=== PATIENT | male | born 1975 | race Caucasian/White ===

== ENCOUNTER 2016-12-31 18:43 | Inpatient (IN) | payer OTHER ==
[~2016-12-31] VITALS: Ht 190.5 cm; Wt 129.0 kg
--- NOTE | ~2016-12-31 | HP ---
PATIENT'S NAME: MAYITO CAMARGO [facility] AGE: 41 Y [address] ROOM: [place] [address] LOCATION: [facility] [place] ADMIT DATE: 12/31/2016 History & Physical DISCHARGE DATE: FAMILY PHYSICIAN: PHYSICIAN, NO ATTENDING PHYSICIAN: KAILYN BAILON V DATE OF SERVICE: CHIEF COMPLAINT: Fever, generalized fatigue, and cough. HISTORY OF PRESENT ILLNESS: The patient is a previously healthy 41-year-old male whose troubles began yesterday afternoon. At that point, he developed cough and dyspnea as well as shortness of breath. He also had some fevers, which were not quantified. His symptoms continued through the day and today when he was at work he became progressively more ill, diaphoretic, and felt overall quite unwell. He presented to the ER. He does admit to sharp pleuritic type of chest pain at the base of bilateral diaphragms associated with deep inspiration. He denies any nausea, vomiting, diarrhea, rashes, or any recent sick contacts. He did recently travel to [place], [place] by car, where he had a job interview and subsequently stopped by at an outdoor music festival in [place], [place]. However, he denies any sick contacts at these instances. He denies any swelling in his legs or rashes, but he does admit to generalized myalgias and arthralgias. A detailed workup in the emergency room was negative for any significant lab or chest x-ray abnormalities. REVIEW OF SYSTEMS: A detailed review of systems was conducted and is negative aside from pertinent positives mentioned above. PAST MEDICAL HISTORY: The patient denies. PAST SURGICAL HISTORY: Elbow surgery, several years ago. CURRENT MEDICATIONS: None. 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 ROOM: [place] [address] LOCATION: [facility] [place] ADMIT DATE: 12/31/2016 History & Physical DISCHARGE DATE: FAMILY PHYSICIAN: PHYSICIAN, NO ATTENDING PHYSICIAN: KAILYN BAILON V have some toxic exposures specifically to ink, but he denies having been overexposed to these substances compared to his baseline. He uses a vaporizer as a source of nicotine and admits to social alcohol use. He denies any recreational or illicit drug use. FAMILY HISTORY: Reviewed and is negative. PHYSICAL EXAMINATION: VITAL SIGNS: Temperature 101.2, blood pressure 160/100, heart rate is 110s, saturating 95% on room air, and respirations are in low 20s. GENERAL: Appears as a well-developed, well-nourished, middle-aged male, in quite a bit of distress and appears diaphoretic and uncomfortable. NEUROLOGIC: A detailed neurological exam is nonfocal. EYES: Exam shows pupils are equal and reactive to light. LYMPHATICS: Exam shows no cervical lymphadenopathy. ENDOCRINE: Exam shows no thyromegaly. LUNGS: Exam reveals dry crackles at the bases with poor inspiratory effort. HEART: Reveals regular tachycardia with no appreciable murmurs, gallops, or rubs. EXTREMITIES: There is no lower extremity edema or jugular venous distention. GI: Exam reveals abdomen is soft, nontender, nondistended. : Exam reveals no costovertebral angle tenderness. VASCULAR: Exam reveals 2+ pedal pulses. Negative Homans sign. SKIN: Warm and dry. No rashes. PSYCHIATRIC: Reveals appropriate mood, cognition, and affect. MUSCULOSKELETAL: Reveals no abnormalities. LABORATORY DATA: Studies performed in the ER significant for a lactate of 1.4, glucose of 67. Normal CBC with an unremarkable differential and negative procalcitonin as well as negative influenza swab. ASSESSMENT AND PLAN: This is a 41-year-old male with a fever and respiratory distress who will be admitted for observation. In addition to the workup performed in the ER, we will order the following tests: 1. CAT scan of his chest to rule out a PE given a recent prolonged trip. We will also check his EKG as well as cardiac enzymes. 2. We will check sed rate and CRP as well as a urinalysis. Since we are already doing a CAT scan, we will scan his abdomen and pelvis. We will provide him with a symptomatic support during his observation with antiemetics, antipyretics, fluids, and Tylenol. The remainder of the plan will depend on his clinical course. Time dedicated to this patient encounter is 35 minutes. PATIENT'S NAME: MAYITO CAMARGO [facility] AGE: 41 Y [address] ROOM: [address] [address] LOCATION: [facility] [place] ADMIT DATE: 12/31/2016 History & Physical DISCHARGE DATE: FAMILY PHYSICIAN: KAREN GRIMALDO ATTENDING PHYSICIAN: KAILYN BAILON V MD BI GUZMAN/modl /[id number] D: [id number] T: [id number] HISTORY & PHYSICAL
--- NOTE | ~2016-12-31 | DS ---
PATIENT'S NAME: MAYITO [facility] AGE: 41 Y [address] ROOM: [address] [address] [place] [facility] [place]MIT DATE: 12/31/2016 Discharge Summary DISCHARGE DATE: 01/03/2017 FAMILY PHYSICIAN: PHYSICIAN, NO ATTENDING PHYSICIAN: Deric Zaman V FINAL DIAGNOSES: 1. Fever, secondary to suspected pneumonia. 2. Left infrahilar opacity, pneumonia versus other. 3. Elevated blood pressure. 4. Anxiety. 5. Tobacco dependence. CONSULTANTS ON THE CASE: None. PROCEDURES: None. HOSPITAL COURSE: Please see details of admission and H and P by Dr. Zaman. Briefly, the patient was admitted with shortness of breath, body aches, fever, and cough. He was found to have a patchy left lower lobe, consistent with early pneumonia. CT scan also showed bilateral axillary lymphadenopathy of uncertain significance. The patient was admitted and was started on oral Levaquin. Respiratory severity scoring was utilized throughout his stay. He did have q.i.d. nebulizer treatments. The patient continued to have some pain and fevers on hospital day #2. Lungs were diminished and a little coarse, but no obvious wheezes at that time. The patient did have some significant anxiety and did get some p.r.n. Ativan, thought secondary to tobacco withdrawal. On hospital day #2, the patient was feeling a little bit better. However, he did have a small emesis after a coughing attack, and the patient was quite wheezy after. We started him on some prednisone and continued to observe him through the night. On the 20th, the patient was feeling significantly better. There was no wheezing noted in his lungs. His chest pain did feel better, and it was felt that he could safely be discharged to home. DIAGNOSTICS: Two views of the chest shows no acute process. CT scan with PE protocol shows: 1. No evidence of pulmonary embolic disease. 2. Enlargement of the central pulmonary arteries raising the question of pulmonary arterial hypertension. 3. Bilateral axillary adenopathy of uncertain etiology. 4. Focal mass-like consolidation in the left infrahilar region measuring 3.3 cm. PATIENT'S NAME: MAYITO [facility] AGE: 41 Y [address] ROOM: [id number] [place], [place] [address] LOCATION: [facility] [place] ADMIT DATE: 12/31/2016 Discharge Summary DISCHARGE DATE: 01/03/2017 FAMILY PHYSICIAN: , KAREN ATTENDING PHYSICIAN: Deric Zaman V CT scan of the abdomen and pelvis for fever showed: 1. Splenomegaly. 2. Focal consolidation of the left infrahilar region, representing focal pneumonia, but cannot rule out possible neoplasm. 3. Scattered air-fluid levels within the small bowel present. No evidence of obstruction. LABORATORY STUDIES: Lactate on admission was 1.4, on the , it was down to 1.1. On admission, sodium 137, potassium 4.3, chloride 104, bicarb 24, glucose 67, BUN 6, creatinine 1.0, mag was 2.1. Chemistries remained stable throughout his stay. CPK was 169, CK-MB was 1.6, troponin was less than 0.04. CRP was 0.95. TSH was 0.395. On admission, white blood cell count was 9.4, hemoglobin 15.9, hematocrit 45.4, platelets were 197. Hemogram remained stable throughout his stay. Influenza A and B were negative. Sed rate was 13. INR of 0.97. Procalcitonin was less than 0.05. Blood culture showed no growth to date. DISCHARGE INSTRUCTIONS: The patient's diet is as tolerated. Activity is as tolerated. To follow up with Dr. Luque at [facility] on 01/[address] Luque is to follow up with x-ray and/or CT scan to ensure resolution of the left infrahilar opacity. DISCHARGE MEDICATIONS: 1. Levaquin 750 mg daily for 6 days. 2. Florastor 250 mg twice daily. 3. Tylenol 650 mg every 6 hours as needed. 4. Motrin 400 mg every 8 hours as needed. 5. Albuterol 2 puffs every 4 hours as needed for shortness of breath. 6. Prednisone 30 mg p.o. daily for 2 days, then 20 mg daily for 2 days, and 10 mg daily for 2 days, and discontinue. The patient was able to verbalize understanding of these discharge instructions and was discharged in stable condition. We do appreciate participating in this patient's care. Thank you very much for the ability to serve them while hospitalized at [facility]. Time spent coordinating details of discharge was greater than 30 minutes of which was spent in patient education and completion of medication reconciliation. PATIENT'S NAME: MAYITO [facility] AGE: 41 Y [address] ROOM: [address] [address] LOCATION: [facility] [place] ADMIT DATE: 12/31/2016 Discharge Summary DISCHARGE DATE: 01/03/2017 FAMILY PHYSICIAN: KAREN GRIMALDO ATTENDING PHYSICIAN: Deric Zmaan V MAIRA MCDOWELL FOR PETTY DUNLAP MD JATINDER/modl /[id number] d: 01/04/17309 t: 01/23/17 1619, DISCHARGE SUMMARY
--- NOTE | ~2016-12-31 | ER ---
PATIENT'S NAME: MAYITO CAMARGO [facility] AGE: 41 Y [address] ROOM: [place] [id number] LOCATION: [facility] [place] ADMIT DATE: 12/31/2016 ER/Outpatient Report DISCHARGE DATE: FAMILY PHYSICIAN: PHYSICIAN, NO ATTENDING PHYSICIAN: KAILYN BAILON V TIME OF ARRIVAL: 1843 hours. TIME SEEN: 1900 hours. CHIEF COMPLAINT: This is a 41-year-old male, he is previously quite healthy, he is in with complaint of cough, shortness of breath, difficulty breathing, fever, and generalized muscle aches. HISTORY OF PRESENT ILLNESS: The patient reports he developed a cough last night. He is producing moderate amounts of sputum. He had progressively worse difficulty breathing and cough throughout the night and throughout the day today. He developed fever and chills today. PAST MEDICAL HISTORY: Significant for ADHD. CURRENT MEDICATIONS: Include Dexedrine. REVIEW OF SYSTEMS: Otherwise, negative. SOCIAL HISTORY: He is a 1-pack per day smoker. PHYSICAL EXAMINATION: GENERAL: Alert, cooperative male, in moderate respiratory distress. VITAL SIGNS: Stable. He was tachycardiac, tachypneic, and febrile with temperature 101.2. HEAD, EARS, EYES, NOSE, AND THROAT: Normal. NECK: Supple. Neck veins are flat. HEART: Had a regular rate and rhythm. He is tachycardic. There is no murmur. LUNGS: He had rhonchi and wheezing audible bilaterally. ABDOMEN: Soft and nontender. PATIENT'S NAME: MAYITO CAMARGO [facility] AGE: 41 Y [address] ROOM: [place] [id number] LOCATION: [facility] [place] ADMIT DATE: 12/31/2016 ER/Outpatient Report DISCHARGE DATE: FAMILY PHYSICIAN: PHYSICIAN, NO ATTENDING PHYSICIAN: KAILYN BAILON V EXTREMITIES: Normal. NEUROLOGIC: Exam is normal. LABORATORY DATA: CBC and metabolic profile were unremarkable. Lactate was normal. Chest x-ray was negative by my interpretation. EKG revealed sinus tachycardia with no acute ST or T-wave changes. Procalcitonin was negative. CT scan revealed no evidence of PE, he did have a patchy consolidation of left lower lobe, consistent with early pneumonia and bilateral axillary lymphadenopathy of uncertain significance. EMERGENCY DEPARTMENT COURSE: Dr. Bailon was called who arrived promptly evaluated the patient and made arrangements to admit the patient. He had an albuterol Atrovent breathing treatment while in the emergency department with no improvement. ASSESSMENT: Bronchitis with wheezing. PLAN: Admit for IV antibiotics. ANA ROGERS MD JPREET/modl /[id number] d: 01/01/17 0350 t: 01/01/17 0455, OUTPATIENT REPORT
[2016-12-31 19:43] LABS: BASOPHIL % 0.4 %; EOSINOPHIL # 0.1 K/uL (0.0-0.5); EOSINOPHIL % 1.3 %; HEMATOCRIT 45.4 % (37.0-53.0); HEMOGLOBIN 15.9 g/dL (12.0-17.0); IMMATURE GRANULOCYTE % 0.2 %; LYMPHOCYTE # 2.1 K/uL (0.8-4.0); LYMPHOCYTE % 22.2 %; MCV 91.3 fl (83.0-98.0); MONOCYTE # 0.9 K/uL (0.0-1.0); MONOCYTE % 9.4 %; MPV 9.7 fl (9.4-12.4); NEUTROPHIL # (ANC) 6.3 K/uL (1.4-9.0); NEUTROPHIL % 66.5 %; NRBC % 0 /100WBC (0-0.00); PLATELET COUNT 197 K/uL (150-450); RBC 4.97 M/uL (4.00-6.00); RDW-CV 13.6 % (11.9-14.6); WBC 9.4 K/uL (4.0-11.0)
[2016-12-31 20:08] LABS: ALBUMIN 3.5 gm/dL (3.5-5.0); ALK PHOS 54 IU/L (33-138); ALT 27 IU/L (12-78); ANION GAP 11.3 (10.0-19.0); AST 20 IU/L (10-40); BLOOD UREA NITROGEN 6 mg/dL (6-24); CALCIUM 8.8 mg/dL (8.5-10.5); CHLORIDE 104 mMol/L (96-110); CO2 24 mMol/L (22-32); ESTIMATED GFR (MDRD EQUATION) > 60; POTASSIUM 4.3 mMol/L (3.7-5.1); SODIUM 135 mMol/L (135-145); TOTAL BILIRUBIN 0.8 mg/dL (0.0-1.5); TOTAL PROTEIN 7.2 g/dL (6.0-8.4)
[2016-12-31 22:22] LABS: INR - (THERAPEUTIC) 0.97 (0.92-1.07); PROTIME 10.2 SECONDS (9.8-11.4)
[2016-12-31 22:28] LABS: CPK 169 IU/L (35-332); MAGNESIUM 2.1 mg/dL (1.8-2.6)
--- NOTE | 2017-01-01 03:05 | NUR ---
Patient is a 41 year old male admitted with fever of unknown origin, has a productive cough Pro-chemo was neg as well as WBC neg. History of ADHA but has not taken any meds for this for along time. Otherwise not much for medical history. Yesterday started feeling bad, SOB, with expiratory wheezes and is being admitted for pneumonia.
--- NOTE | 2017-01-01 04:31 | NUR ---
Significant Event: 41 year old admitted for fever of unknown origin. Tylenol and Motrin given, but fevers have persisted until 0400 when they finally returned to normal(see MEWS). Heart has been tachycardic and patient also has high respiratory rate. Dr is aware and has been updated. Patient is alert and orientated. Has a productive cough and wheezes through out lung morelos. Labs have all been withing normal ranges. Has not needed any 02 Follow up: Continue to monitor.
--- NOTE | 2017-01-01 15:21 | NUR ---
HAS SLEPT MOST OF THE SHIFT. TEMPS THIS SHIFT HAVE BEEN 98.1 AND 97.8. UP TO THE BATHROOM AND IN THE ROOM AD TERESA. 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 HAS A PRODUCTIVE COUGH. C/O SOB AND SOME PAIN IN HIS CHEST WITH DEEP BREATHS. LUNGS ARE CLEAR TODAY. EATING AND VOIDING WITHOUT DIFFICULTY.
--- NOTE | 2017-01-02 05:21 | NUR ---
Significant Event: Patient was found missing from room at 2200. Later was found around ER and stated he had went to his car to get a sandwich and a soda since the kitchen was closed, he smelled like cigarette smoke, which he stated he took a couple of puffs. Patient stated he is anxious because he doesn't have custody of his son and can't see him, denies suicide ideation. notified and ordered ativan, and a nicotine patch. Initiated 15 minute checks for patient safety. Follow up: Continue to monitor, possible psyche consult?
[2017-01-02 06:54] LABS: BASOPHIL % 0.6 %; EOSINOPHIL # 0.2 K/uL (0.0-0.5); EOSINOPHIL % 4.6 %; HEMATOCRIT 44.5 % (37.0-53.0); HEMOGLOBIN 15.1 g/dL (12.0-17.0); IMMATURE GRANULOCYTE % 0.4 %; LYMPHOCYTE # 1.2 K/uL (0.8-4.0); LYMPHOCYTE % 23.3 %; MCH 31.2 pg (27.0-34.0); MCHC 33.9 gm/dL (32.0-36.5); MCV 91.9 fl (83.0-98.0); MONOCYTE # 0.4 K/uL (0.0-1.0); MONOCYTE % 7.8 %; MPV 9.8 fl (9.4-12.4); NEUTROPHIL # (ANC) 3.3 K/uL (1.4-9.0); NEUTROPHIL % 63.3 %; NRBC % 0 /100WBC (0-0.00); PLATELET COUNT 162 K/uL (150-450); RBC 4.84 M/uL (4.00-6.00); RDW-CV 13.6 % (11.9-14.6); WBC 5.3 K/uL (4.0-11.0)
[2017-01-02 07:06] LABS: ALBUMIN 3.2 gm/dL (3.5-5.0); ANION GAP 11.2 (10.0-19.0); BLOOD UREA NITROGEN 7 mg/dL (6-24); CALCIUM 8.4 mg/dL (8.5-10.5); CHLORIDE 107 mMol/L (96-110); CO2 23 mMol/L (22-32); ESTIMATED GFR (MDRD EQUATION) > 60; PHOSPHORUS 3.3 mg/dL (2.5-4.9); POTASSIUM 4.2 mMol/L (3.7-5.1); SODIUM 137 mMol/L (135-145)
--- NOTE | 2017-01-02 16:34 | NUR ---
Significant Event: patient taking telemetry off and up to bathroom often in am, normally works nights so sleeps during day, Encouraged fluids to help loosen secretions. Coughing harshly and then vomited this afternoon, afebrile and walking in halls, depressed in am discussed smoking cessation and finding ways to deal with stress besides alcohol and smoking. Patient sleeping most of am, then more alert and active walking in halls a few times, napping some late afternoon but more cheerful. Follow up:Home tomorrow
--- NOTE | 2017-01-03 04:17 | NUR ---
SIGNIFICANT EVENT: Pt alert, oriented, anxious. VSS on RA. No IV access per pt DC, order to leave out per MD. Ativan given x2, last at approx 0400. Pt spoke several times about going home today and asked last night if he could leave, encouraged to stay until MD can come visit today and speak with him. Regular diet, ate 100% of dinner meal. Independent to ambulate.
[2017-01-03] MEDS ORDERED: LEVAQUIN750 MG PO (11:34)
[2017-01-03] MEDS ORDERED: FLORASTOR250 MG PO (11:35)
[2017-01-03] MEDS ORDERED: TYLENOL325 MG PO (11:36)
[2017-01-03] MEDS ORDERED: ADVIL200 MG PO (11:37)
[2017-01-03] MEDS ORDERED: IPRAT-ALBUT 0.5-3 ML INH (11:39)
[2017-01-03] MEDS ORDERED: DELTASONE20 MG PO (11:41)
[2017-01-03] MEDS ORDERED: PREDNISONE10 MG PO (11:41)
[2017-01-03] MEDS ORDERED: DELTASONE10 MG PO (11:42)
--- NOTE | 2017-01-03 12:00 | NUR ---
DISCHARGE: D: ORDERS RECEIVED FOR THE PATIENT TO BE DISCHARGE TO HOME TODAY. I: DISMISSAL INSTRUCTIONS WERE PREPARED AND REVIEWED WITH THE PATIENT VIRTUALLY. THE FOLLOWING INFORMATION WAS DISCUSSED INCLUDING [employer] TEACHING SHEETS PROVIDED: WHAT IS HIGH BLOOD PRESSURE, YOUR HIGH BLOOD PRESSURE RISK FACTORS, WHY DO YOU SMOKE, ALCOHOLISM-GETTING HELP, LEVOQUIN, FLORASTOR, TYLENOL, MOTRIN AND PREVENTING DVT. REVIEWED ALL NEW PRESCRIPTION, WHY HE IS TAKING THEM AND ANY SIDE EFFECTS THEY MAY CAUSE. ALSO, STRESSED THE IMPORTANCE OF TAKING THEM TO HIS PHARMACY TO BE FILLED TODAY. R: THE PATIENT VERBALIZED UNDERSTANDING OF THE DISMISSAL EDUCATION AT THE TIME OF TEACHING WITH NO FURTHER QUESTIONS. P: THE ABOVE INFORMATION WAS SHARED WITH THE PRIMARY NURSE AND THE CHARGE NURSE THAT THE DISMISSAL EDUCATION WAS COMPLETED. THE PATIENT IS READY FOR DISCHARGE. THE PATIENT AMBULATED TO THE FRONT DOOR WITH NURSING STAFF.
--- NOTE | 2017-01-03 12:15 | NUR ---
DISCHARGE NOTE: Pt. A&Ox3, VSS, anxious to d/c home. No IV access per DO. Ate 100% of breakfast. Denies suicidal ideations and depression at this time. Lungs are diminished in bases. No PRNs given. D/C instructions given by virtual nurse. Left with all belongings and prescriptions. Taken to front door by aide.
== END 2017-01-03 12:15 | disposition disaster alternative care site (69) | DRG 195 ==
LOC: GMED 18:43 → GMSU 22:25
PROVIDERS: Emergency Medicine; Family Medicine; Physician Assistant Medical; ADMIT Internal Medicine
DX: J18.9 Pneumonia, unspecified organism (principal); F41.9 Anxiety disorder, unspecified; R03.0 Elevated blood-pressure reading, without diagnosis of hypertension; F17.210 Nicotine dependence, cigarettes, uncomplicated
CPT/HCPCS: J0456; J0696; J1885; J2930; J7030; J7512; Q9967